=== PATIENT | male | born 1965 | race Two or more races ===

== ENCOUNTER 2017-06-19 07:03 | Day surgery (SDC) | payer BC ==
[~2017-06-19] VITALS: Ht 172.7 cm; Wt 86.2 kg
[2017-06-19] VITALS (9 sets, daily range): BP systolic 132–157; BP diastolic 86–99
[2017-06-19] MEDS ORDERED: Propofol 200mg/20ml IV ONE (09:00)
[2017-06-19] MEDS ORDERED: Lidocaine 1% MPF 10mg/ml 5ml ONE (09:00)
--- NOTE | 2017-06-19 09:02 | Pre-Procedure Note/Attestation ---
Pre-Procedure Note/Attestation Complete Prior to Procedure Planned Procedure: not applicable Procedure Narrative: esophagogastroduodenoscopy and colonoscopy Indications for Procedure Pre-Operative Diagnosis: screening colon, constipation, GERD Attestation I attest that I discussed the nature of the procedure; its benefits; risks and complications; and alternatives (and the risks and benefits of such alternatives ), prior to the procedure, with the patient (or the patient's legal canvas products sales representative). I attest that, if there was a reasonable possibility of needing a blood transfusion, the patient (or the patient's legal [employer] sales representative) was given the [facility] standardized written summary, pursuant to the [place] Blood Safety Act ([place] Health and Safety Code # 1645, as amended). I attest that I re-evaluated the patient just prior to the surgery and that there has been no change in the patient's H&P, except as documented below: DUANE CASTANEDA Jun 19, 2017 09:02
--- NOTE | 2017-06-19 09:03 | Short Stay Surgery H&P ---
History of Present Illness History of Present Illness Chief Complaint see recent consult note HPI Mukesh Poole is a 52 year old male who was admitted on for Colon Screening, Abdominal Pain Patient History Allergies: Coded Allergies: No Known Allergies (Unverified , 06/18/17) PAST MEDICAL HISTORY: Past Surgeries: Social History: Physical Exam Vital Signs Last Vital Signs Date Time Temp Pulse Resp B/P (MAP) Pulse Ox O2 Delivery O2 Flow Rate FiO2 06/19/17 08:48 97.2 47 20 132/89 97 Room Air Plan Attestation Are the patient's medical conditions optimized for surgery? DUANE CASTANEDA Jun 19, 2017 09:03
--- NOTE | 2017-06-19 09:20 | Anethesia Preoperative Eval ---
Anesthesia Pre-op PMH/ROS General Date of Evaluation: Jun 19, 2017 Time of Evaluation: 08:45 Anesthesiologist: luz ASA Score: ASA 2 Mallampati Score Class I : Soft palate, uvula, fauces, pillars visible Class II: Soft palate, uvula, fauces visible Class III: Soft palate, base of uvula visible Class IV: Only hard plate visible Mallampati Classification: Class II Surgeon: gene Diagnosis: abdominal pain/colon screening Surgical Procedure: egd/colonoscopy Anesthesia History: none Social History: current smoker Family History: no anesthesia problems Allergies: Coded Allergies: No Known Allergies (Unverified , 06/18/17) Medications: see eMAR Past Medical History Neurologic/Psychiatric: Reports: other - headache Anesthesia Pre-op Phys. Exam Physician Exam Last Vital Signs Date Time Temp Pulse Resp B/P (MAP) Pulse Ox O2 Delivery O2 Flow Rate FiO2 06/19/17 08:48 97.2 47 20 132/89 97 Room Air Constitutional: NAD Cardiovascular: RRR Respiratory: CTA Gastrointestinal: S/NT/ND Airway Exam Mallampati Score: Class II MO: full Neck: supple TMD: 2fb ROM: full Teeth: intact Anesthesia Pre-op A/P Studies Pre-op Studies: EKG - sinus fannie, lafb Risk Assessment & Plan Assessment: asa2 Plan: mac Status Change Before Surgery: No Pre-Antibiotics Drug: RASTA Browning Jun 19, 2017 09:20
--- NOTE | 2017-06-19 09:28 | Endoscopy Procedure Note ---
Endoscopy Procedure Note Indication for Procedure: screening colon, constipation, GERD Procedures Performed: EGD, colonoscopy Operative Findings/Diagnosis: gastritis, one polyp, diverticulosis Specimen: yes Pt Tolerated Procedure Well: Yes Estimated Blood Loss: none Anesthesiologist: macario Anesthesia: MAC Implant(s) used?: No 50 yrs or older w/o bx or poly: No 10yrs. F/U not recommended: Yes If not recommended, why?: Above average risk 10 yrs. F/U needed: Yes 18 years or older w/prev. colo: No DUANE CASTANEDA Jun 19, 2017 09:28
[2017-06-19] MEDS ORDERED: Atropine Inj 1mg/10ml Syr IV PRN (09:30)
[2017-06-19] MEDS ORDERED: DiphenhydrAMINE 50mg/ml Inj IVP PRN (09:30)
[2017-06-19] MEDS ORDERED: Midazolam 2mg/2ml Inj IVP PRN (09:30)
[2017-06-19] MEDS ORDERED: fentaNYL 100 mcg/2 mL IV PRN (09:30)
--- NOTE | 2017-06-19 17:15 | Procedure Note ---
DATE OF PROCEDURE: 06/19/2017 PROCEDURE: Upper endoscopy with biopsy and colonoscopy with snare polypectomy. SURGEON: Keith Kaur M.D. ANESTHESIOLOGIST: Emeli Carrillo M.D. INSTRUMENT: Olympus adult flexible upper endoscope and colonoscope. INDICATION: 1. Screening colonoscopy evaluation. 2. Chronic constipation. 3. Chronic gastroesophageal reflux disease. REASON FOR PROCEDURE: The procedure, risks, benefits, and possible consequences, including hemorrhage, aspiration, perforation and infection, and alternative treatments, were explained to the patient/legal guardian by Dr. Keith Kaur and the patient/legal guardian understood and accepted these risks. PROCEDURE: After informed consent was obtained and the patient was adequately sedated, Olympus upper endoscope was advanced from mouth into the second portion of duodenum and retroflexion was performed of the stomach. The patient has diffuse gastritis, highly suspicious for H. pylori infection. Biopsy from body and antrum was obtained to rule out H. pylori infection. At this time, the upper endoscope was retrieved and the patient was turned over for colonoscopy. First, a rectal exam was performed, which was normal. Then, the scope was advanced from the rectum into the cecum documented by appendiceal orifice, ileocecal valve, and upper quadrant palpation. Quality of prep was good. The patient had a lot of fluid throughout the colon, which we aspirated and washed as best as we could and about 5% of the colonic mucosa was not examined given his prep. The patient had evidence of one polyp in the transverse colon, sessile, roughly measured about 5 millimeters, removed with cold snare polypectomy technique. The patient also has some scattered diverticulosis in the left colon. Retroflexion of rectum showed evidence of medium-sized nonbleeding internal hemorrhoids. The patient tolerated the procedure well without any complication. SUMMARY FINDINGS: 1. Diffuse gastritis, suspicious for Helicobacter pylori infection status post biopsy. 2. One colonic polyp removed, see above for details. 3. Diverticulosis. 4. Internal hemorrhoids. RECOMMENDATIONS: Follow up biopsies and treat accordingly. We recommend repeat colonoscopy in 5 years. Keith Kaur M.D. DR: REESE JOB#: [id number] CC:
--- NOTE | 2017-06-21 18:39 | Cardiology Report ---
APPROVED REPORT EKG Measurement Heart [id number] OR [id number] Sinus bradycardia Left anterior fascicular block Prolonged QT Abnormal ECG
--- NOTE | 2017-06-22 05:47 | Immediate Post-Op Evaluation ---
Immediate Post-Op Evalulation Immediate Post-Op Evalulation Procedure: egd/colonoscopy Date of Evaluation: Jun 19, 2017 Time of Evaluation: 09:52 IV Fluids: 0.9ns 350ml Blood Products: none Estimated Blood Loss: negligible Blood Pressure Systolic: 143 Blood Pressure Diastolic: 69 Pulse Rate: 49 Respiratory Rate: 18 O2 Sat by Pulse Oximetry: 100 Temperature (Fahrenheit): 97.0 Pain Score (1-10): 0 Nausea: No Vomiting: No Complications none Patient Status: awake, reacts, patent Hydration Status: adequate Drug: RASTA Browning Jun 22, 2017 05:47
[2017-06-22 05:49] VITALS: BP 145/88
--- NOTE | 2017-06-22 05:49 | 48 Hour Post Anesthesia Eval ---
Post Anesthesia Evaluation Procedure: egd/colonoscopy Date of Evaluation: Jun 19, 2017 Time of Evaluation: 09:54 Blood Pressure Systolic: 145 0: 88 Pulse Rate: 50 Respiratory Rate: 18 Temperature (Fahrenheit): 97.0 O2 Sat by Pulse Oximetry: 100 Airway: patent Nausea: No Vomiting: No Pain Intensity: 0 Hydration Status: adequate Cardiopulmonary Status: stable Mental Status/LOC: patient returned to baseline Post-Anesthesia Complications: none Follow-up care needed: N/A RASTA LITTLE Jun 22, 2017 05:49
== END 2017-06-19 10:55 | disposition home or self-care (01) ==
LOC: GAS 07:03
DX: Z12.11 Encounter for screening for malignant neoplasm of colon (principal); K59.09 Other constipation; K21.9 Gastro-esophageal reflux disease without esophagitis; K29.70 Gastritis, unspecified, without bleeding; K63.5 Polyp of colon; K57.90 Diverticulosis of intestine, part unspecified, without perforation or abscess without bleeding; K64.8 Other hemorrhoids; F17.200 Nicotine dependence, unspecified, uncomplicated; R00.1 Bradycardia, unspecified
CPT/HCPCS: 43239; 45380; 93005; J2704; 94003; 94150

== ENCOUNTER 2018-09-20 13:40 | Outpatient (CLI) | payer BC | END 2018-09-20 14:10 | disposition home or self-care (01) | LOC: PAN 13:40 | DX: R10.9 Unspecified abdominal pain (principal) | CPT/HCPCS: 83013 ==